=== PATIENT | female | born 1985 | race African-American/Black ===

== ENCOUNTER 2019-04-29 18:53 | Emergency (ER) | payer OTHER ==
[~2019-04-29] VITALS: Ht 162.6 cm; Wt 62.6 kg
[2019-04-29] MEDS ORDERED: NOHOMEMEDICATIONS (19:06)
[2019-04-29] MEDS ORDERED: NABUMETONE 750750 M1 PO (20:22)
[2019-04-29 20:36] VITALS: BP 97/69
== END 2019-04-29 20:37 | disposition home or self-care (01) ==
LOC: M.ERS 18:53
DX: S01.81XA Laceration without foreign body of other part of head, initial encounter (principal); Z98.890 Other specified postprocedural states; W22.8XXA Striking against or struck by other objects, initial encounter; Y92.89 Other specified places as the place of occurrence of the external cause; Y93.84 Activity, sleeping; Y99.8 Other external cause status